=== PATIENT | female | born 2000 | race Caucasian/White ===

== ENCOUNTER 2020-04-13 14:42 | Outpatient (CLI) | payer BC, OTHER ==
[2020-04-13] MEDS ORDERED: RINGERS SOLUTION,LACTATED 1,000 ML IV PRN (14:55)
[2020-04-13 15:21] LABS: BACTERIA (WET MOUNT) 3+ BACTERIA SEEN; EPITHELIALS (WET MOUNT) 3+ EPITHELIALS SEEN; T.VAGINALIS (WET MOUNT) NO TRICHOMONAS SEEN; WBCS (WET MOUNT) 2+ WBCS SEEN; YEAST (WET MOUNT) NO YEAST SEEN
[2020-04-13 15:28] LABS: APPEARANCE,URINE CLEAR; BILIRUBIN,URINE NEGATIVE (NEGATIVE); COLOR,URINE STRAW; GLUCOSE, URINE 50 mg/dL (NEGATIVE); KETONES,URINE NEGATIVE (NEGATIVE); LEUKOCYTE ESTERASE,URINE NEGATIVE (NEGATIVE); NITRITE,URINE NEGATIVE (NEGATIVE); PROTEIN,URINE NEGATIVE (NEGATIVE); URINE SPECIFIC GRAVITY 1.003; UROBILINOGEN,URINE NEGATIVE mg/dL (<2.0)
[2020-04-13 15:44] LABS: ABSOLUTE LYMPHOCYTES (AUTO) 1.8 10^3/uL (0.5-4.7); ABSOLUTE MONOCYTES (AUTO) 0.6 10^3/uL (0.1-1.4); ABSOLUTE NEUT (AUTO) 7.5 10^3/uL (1.7-8.2); BASOPHILS % (AUTO) 0.2 % (0-2); EOSINOPHILS % (AUTO) 0.3 % (0-6); HEMATOCRIT 29.7 % (36.0-47.0); HEMOGLOBIN 10.4 g/dL (12.0-15.5); LYMPHOCYTES % (AUTO) 17.9 % (13-45); MEAN CORPUSCULAR HEMOGLOBIN 30.7 pg (27.0-33.4); MEAN CORPUSCULAR HGB CONC 35.2 g/dL (32.0-36.0); MEAN CORPUSCULAR VOLUME 87 fl (80-97); MONOCYTES % (AUTO) 6.3 % (3-13); PLATELET COUNT 246 10^3/uL (150-450); RED BLOOD COUNT 3.41 10^6/uL (3.72-5.28); RED CELL DISTRIBUTION WIDTH 13.5 % (11.5-14.0); SEGMENTED NEUTROPHILS % (AUTO) 75.3 % (42-78); TOTAL CELLS COUNTED % (AUTO) 100 %
[2020-04-13 15:44] LABS: URINE AMPHETAMINES SCREEN NEGATIVE; URINE BARBITURATES SCREEN NEGATIVE; URINE BENZODIAZEPINES SCREEN NEGATIVE; URINE COCAINE SCREEN NEGATIVE; URINE MARIJUANA (THC) SCREEN NEGATIVE; URINE METHADONE SCREEN NEGATIVE; URINE PHENCYCLIDINE SCREEN NEGATIVE
[2020-04-13] MEDS ORDERED: INDOMETHACIN 50 MG SUPP.RECT PR ONE (16:00)
[2020-04-13] MEDS ORDERED: AMPICILLIN SODIUM 2 GM in NORMAL SALINE 100 ML IV ONE (16:15)
[2020-04-13] MEDS ORDERED: AZITHROMYCIN INJ 500 MG VIAL IV ONE ×2 (16:16→18:18)
--- NOTE | 2020-04-13 16:27 | PDOC TRANSFER SUMMARY ---
General Admission Date/PCP: JESSENIA CHRISTIANSON MD Admission Date: 04/13/20 Transfer Date: 04/13/20 Accepting Facility: [facility] Accepting Physician: Dr. Skaggs Resuscitation Status: Full Code - Transfer Medications Home Medications: Vits96/Iron Fum/Folic [ Tablet] 1 tab PO DAILY 04/13/20 Progesterone, Micronized [Prometrium] 1 cap PO DAILY 04/13/20 Transfer Medications: Current Medications Lactated Ringer's (Lactated Ringers 1000 Ml Iv Soln) 1,000 mls @ 125 mls/hr IV CONTINUOUS PRN PRN Reason: THIS MED IS NOT "PRN" Stop: 05/13/20 14:54 - Allergies Allergies/Adverse Reactions: No Known Allergies Allergy (Verified 04/13/20 15:03) Hospital Course Hospital Course: 20yo at 20+6ega presents from the office for cervical length of 6mm. She was seen in the office for scheduled cervical length today due to history of PPROM at 21 wks with prior . She has been on prometrium due to history of 21wks PPROM and loss GC/CT pending. Fern is negative wet prep neg for trich and neg for yeast On exam cervix appears to be dilated to 3cm with membranes appear to be flush with cervical os 100mg Indomethicin given rectally. 2 grams Ampicillin IV Azithromycin 500mg IV Physical Exam Vital Signs: Intake & Output 04/12/20 04/13/20 04/14/20 06:59 06:59 06:59 Weight 56.699 kg General appearance: PRESENT: no acute distress, well-developed, well-nourished Head exam: PRESENT: atraumatic, normocephalic Respiratory exam: PRESENT: clear to auscultation mikki. ABSENT: rales, rhonchi, wheezes Pulses: PRESENT: normal dorsalis pedis pul GI/Abdominal exam: PRESENT: normal bowel sounds, soft. ABSENT: distended, guarding, mass, organolmegaly, rebound, tenderness Rectal exam: PRESENT: deferred Extremities exam: PRESENT: full ROM. ABSENT: calf tenderness, clubbing, pedal edema Neurological exam: PRESENT: alert, awake, oriented to person, oriented to place, oriented to time, oriented to situation, CN II-XII grossly intact. ABSENT: motor sensory deficit Psychiatric exam: PRESENT: appropriate affect, normal mood. ABSENT: homicidal ideation, suicidal ideation Skin exam: PRESENT: dry, intact, warm. ABSENT: cyanosis, rash Results Laboratory Results: 04/13/20 15:31 04/13/20 04/13/20 15:00 15:31 WBC 10.0 RBC 3.41 L Hgb 10.4 L Hct 29.7 L MCV 87 MCH 30.7 MCHC 35.2 RDW 13.5 Plt Count 246 Seg Neutrophils % 75.3 Urine Color STRAW Urine Appearance CLEAR Urine pH 7.0 Ur Specific Sixes 1.003 Urine Protein NEGATIVE Urine Glucose (UA) 50 H Urine Ketones NEGATIVE Urine Blood NEGATIVE Urine Nitrite NEGATIVE Ur Leukocyte Esterase NEGATIVE Urine WBC (Auto) 0 Urine RBC (Auto) 0 Status: Imported from PACS Plan Discharge Plan: transfer to [facility] for evaluation of obtaining cerclage
[2020-04-13] MEDS ORDERED: AMPICILLIN SOD INJ 2 GM VIAL ONE (17:24)
[2020-04-13 18:37] LABS: CHLAM PCR NOT DETECTED (NOT DETECT)
== END 2020-04-13 18:34 | disposition short-term general hospital (02) ==
LOC: LC 14:42
PROVIDERS: ATTEND Student in an Organized Health Care Education/Training Program
DX: O34.32 Maternal care for cervical incompetence, second trimester (principal); Z3A.20 20 weeks gestation of pregnancy
CPT/HCPCS: 59899; 36415; 87210; 85025; 81001; 80307; 87491; 87591; Q0114; J0290; J0456; 94760

== ENCOUNTER 2020-04-18 05:49 | Outpatient (CLI) | payer BC, OTHER ==
[2020-04-18 07:29] LABS: T.VAGINALIS (WET MOUNT) NO TRICHOMONAS SEEN; WBCS (WET MOUNT) FEW WBCS SEEN; YEAST (WET MOUNT) NO YEAST SEEN
[2020-04-18 08:46] LABS: APPEARANCE,URINE SLIGHTLY-CLOUDY; BILIRUBIN,URINE NEGATIVE (NEGATIVE); COLOR,URINE YELLOW; GLUCOSE, URINE NEGATIVE (NEGATIVE); KETONES,URINE NEGATIVE (NEGATIVE); LEUKOCYTE ESTERASE,URINE MODERATE (NEGATIVE); NITRITE,URINE NEGATIVE (NEGATIVE); PROTEIN,URINE NEGATIVE (NEGATIVE); URINE SPECIFIC GRAVITY 1.008; UROBILINOGEN,URINE NEGATIVE mg/dL (<2.0)
[2020-04-18 08:53] LABS: URINE AMPHETAMINES SCREEN NEGATIVE; URINE BARBITURATES SCREEN NEGATIVE; URINE BENZODIAZEPINES SCREEN NEGATIVE; URINE COCAINE SCREEN NEGATIVE; URINE MARIJUANA (THC) SCREEN NEGATIVE; URINE METHADONE SCREEN NEGATIVE; URINE PHENCYCLIDINE SCREEN NEGATIVE
[2020-04-18] MEDS ORDERED: AMPICILLIN SOD/SULBACTAM 3 GM VIAL IV ONE (10:12)
[2020-04-18] MEDS ORDERED: RINGERS SOLUTION,LACTATED 1,000 ML IV PRN (10:12)
[2020-04-18] MEDS ORDERED: AMPICILLIN SOD/SULBACTAM 3 GM VIAL ONE (11:09)
--- NOTE | 2020-04-18 12:37 | RADIOLOGY REPORT (SQ) ---
EXAM DESCRIPTION: U/S OB LIMITED IMAGES COMPLETED DATE/TIME: 04/18/2020 10:11 am REASON FOR STUDY: 21w5d in need of KIRIT, possible PROM. History of incompetent cervix status post ce rclage initial last Thursday. COMPARISON: None TECHNIQUE: Static and Dynamic grayscale imaging performed of gravid uterus using transabdominal appr oach. Additional selected color Doppler and spectral images recorded. All stored on PACS. LIMITATIONS: None. FINDINGS: FETUSES SEEN:1 EGA: 21 weeks 5 days Calculated using BPD,FL,HC,AC documented on images. No discrepancy with clinica l dates. MARLO: 08/24/2020 EFW: 445+/- 66 grams PERCENTILE: NA KIRIT: 14.3 cm PLACENTA: Posterior GRADE: I PRESENTATION: Breech ANATOMY: Anatomic survey was not performed. MATERNAL ADNEXA: Maternal ovaries not visualized. CERVICAL LENGTH: 1.9 cm Closed. OTHER: No other significant finding. IMPRESSION: LIVING INTRAUTERINE . ESTIMATED GESTATIONAL AGE 21 weeks 5 days Cervix is closed. Trimester of : Second trimester - 13 weeks 1 day to 27 weeks 6 days. TECHNICAL DOCUMENTATION: JOB ID: [id number] 2010 [employer]- All Rights Reserved Reading location - IP/workstation name: [email or web address]
[2020-04-18] MEDS ORDERED: AMPICILLIN SOD/SULBACTAM 1.5 GM VIAL IV SCH (16:00)
== END 2020-04-18 12:45 | disposition short-term general hospital (02) ==
LOC: LC 05:49
PROVIDERS: ATTEND Obstetrics & Gynecology
DX: O26.892 Other specified pregnancy related conditions, second trimester (principal); Z3A.21 21 weeks gestation of pregnancy
CPT/HCPCS: 87210; 81001; 80307; 84112; 76815; Q0114; J0295

== ENCOUNTER 2020-04-26 08:56 | Outpatient (CLI) | payer BC, OTHER ==
[2020-04-26 10:38] LABS: ABSOLUTE LYMPHOCYTES (AUTO) 1.5 10^3/uL (0.5-4.7); ABSOLUTE MONOCYTES (AUTO) 0.5 10^3/uL (0.1-1.4); ABSOLUTE NEUT (AUTO) 10.2 10^3/uL (1.7-8.2); BASOPHILS % (AUTO) 0.1 % (0-2); EOSINOPHILS % (AUTO) 0.2 % (0-6); HEMATOCRIT 31.6 % (36.0-47.0); HEMOGLOBIN 10.6 g/dL (12.0-15.5); LYMPHOCYTES % (AUTO) 12.5 % (13-45); MEAN CORPUSCULAR HEMOGLOBIN 29.3 pg (27.0-33.4); MEAN CORPUSCULAR HGB CONC 33.5 g/dL (32.0-36.0); MEAN CORPUSCULAR VOLUME 88 fl (80-97); MONOCYTES % (AUTO) 4.4 % (3-13); PLATELET COUNT 286 10^3/uL (150-450); RED CELL DISTRIBUTION WIDTH 13.9 % (11.5-14.0); SEGMENTED NEUTROPHILS % (AUTO) 82.8 % (42-78); TOTAL CELLS COUNTED % (AUTO) 100 %; WHITE BLOOD COUNT 12.3 10^3/uL (4.0-10.5)
[2020-04-26 10:54] LABS: APPEARANCE,URINE SLIGHTLY-CLOUDY; BILIRUBIN,URINE NEGATIVE (NEGATIVE); COLOR,URINE YELLOW; GLUCOSE, URINE NEGATIVE (NEGATIVE); KETONES,URINE NEGATIVE (NEGATIVE); LEUKOCYTE ESTERASE,URINE MODERATE (NEGATIVE); NITRITE,URINE NEGATIVE (NEGATIVE); PROTEIN,URINE NEGATIVE (NEGATIVE); UROBILINOGEN,URINE NEGATIVE mg/dL (<2.0)
[2020-04-26 11:19] LABS: URINE AMPHETAMINES SCREEN NEGATIVE; URINE BARBITURATES SCREEN NEGATIVE; URINE BENZODIAZEPINES SCREEN NEGATIVE; URINE COCAINE SCREEN NEGATIVE; URINE MARIJUANA (THC) SCREEN NEGATIVE; URINE METHADONE SCREEN NEGATIVE; URINE PHENCYCLIDINE SCREEN NEGATIVE
== END 2020-04-26 11:38 | disposition home or self-care (01) ==
LOC: LC 08:56
PROVIDERS: ATTEND Obstetrics & Gynecology
DX: O47.02 False labor before 37 completed weeks of gestation, second trimester (principal); Z3A.22 22 weeks gestation of pregnancy; Z02.83 Encounter for blood-alcohol and blood-drug test
CPT/HCPCS: 36415; 80307; 81001; 85025; 87086

== ENCOUNTER 2020-04-26 21:02 | Outpatient (CLI) | payer BC, OTHER ==
[2020-04-26 22:04] LABS: APPEARANCE,URINE SLIGHTLY-CLOUDY; BILIRUBIN,URINE NEGATIVE (NEGATIVE); COLOR,URINE YELLOW; GLUCOSE, URINE NEGATIVE (NEGATIVE); KETONES,URINE NEGATIVE (NEGATIVE); LEUKOCYTE ESTERASE,URINE LARGE (NEGATIVE); NITRITE,URINE NEGATIVE (NEGATIVE); PROTEIN,URINE NEGATIVE (NEGATIVE); URINE SPECIFIC GRAVITY 1.006; UROBILINOGEN,URINE NEGATIVE mg/dL (<2.0)
[2020-04-26 22:24] LABS: URINE AMPHETAMINES SCREEN NEGATIVE; URINE BARBITURATES SCREEN NEGATIVE; URINE BENZODIAZEPINES SCREEN NEGATIVE; URINE COCAINE SCREEN NEGATIVE; URINE MARIJUANA (THC) SCREEN NEGATIVE; URINE PHENCYCLIDINE SCREEN NEGATIVE
[2020-04-26 22:32] LABS: URINE METHADONE SCREEN NEGATIVE
== END 2020-04-26 23:29 | disposition home or self-care (01) ==
LOC: LC 21:02
PROVIDERS: ATTEND Obstetrics & Gynecology
DX: O34.32 Maternal care for cervical incompetence, second trimester (principal); O47.02 False labor before 37 completed weeks of gestation, second trimester; O46.92 Antepartum hemorrhage, unspecified, second trimester; Z3A.22 22 weeks gestation of pregnancy
CPT/HCPCS: 80307; 81001

== ENCOUNTER 2020-04-27 02:43 | Outpatient (CLI) | payer BC, OTHER ==
[2020-04-27 05:10] LABS: ABSOLUTE LYMPHOCYTES (AUTO) 2.1 10^3/uL (0.5-4.7); ABSOLUTE MONOCYTES (AUTO) 0.7 10^3/uL (0.1-1.4); ABSOLUTE NEUT (AUTO) 11.1 10^3/uL (1.7-8.2); BASOPHILS % (AUTO) 0.2 % (0-2); EOSINOPHILS % (AUTO) 0.3 % (0-6); HEMATOCRIT 29.9 % (36.0-47.0); HEMOGLOBIN 10.3 g/dL (12.0-15.5); LYMPHOCYTES % (AUTO) 14.8 % (13-45); MEAN CORPUSCULAR HEMOGLOBIN 30.2 pg (27.0-33.4); MEAN CORPUSCULAR HGB CONC 34.5 g/dL (32.0-36.0); MEAN CORPUSCULAR VOLUME 88 fl (80-97); MONOCYTES % (AUTO) 5.3 % (3-13); PLATELET COUNT 290 10^3/uL (150-450); RED BLOOD COUNT 3.41 10^6/uL (3.72-5.28); RED CELL DISTRIBUTION WIDTH 13.8 % (11.5-14.0); SEGMENTED NEUTROPHILS % (AUTO) 79.4 % (42-78); TOTAL CELLS COUNTED % (AUTO) 100 %
[2020-04-27 05:27] LABS: FIBRINOGEN 446 mg/dL (209-497); INTERNATIONAL RATION (INR) 0.96; PARTIAL THROMBOPLASTIN TIME 27.1 SEC (23.5-35.8)
--- NOTE | 2020-04-27 06:27 | RADIOLOGY REPORT (SQ) ---
Ultrasound OB limited on 04/27/2020 at 5:07 AM CLINICAL INDICATION: History of incompetent cervix, evaluate cervical length COMPARISON: 04/18/2020 FINDINGS: Limited sonographic imaging is performed throughout the pelvis by transabdominal approach, both transverse and sagittal images are obtained. Positive cardiac activity is noted with a heart rate of 143 bpm. Placenta is posterior in location with no evidence of placenta previa or abruption. Normal amount of amniotic fluid is noted with amniotic fluid index of 13.9 cm. Fetus is noted in breech presentation with feet presenting. The internal cervical os is open. Cervical cerclage is noted in place. The cervical length measures approximately 1.1 cm. measurements for dates were not performed. IMPRESSION: Widely open internal cervical os with very shortened cervix measuring 1.1 cm with fetus in breech presentation with feet presenting.
[2020-04-27] MEDS ORDERED: CEPHALEXIN 500 MG CAPSULE PO SCH (07:00)
[2020-04-27] MEDS ORDERED: CEPHALEXIN 500 MG CAPSULE ONE (07:08)
[2020-04-27] MEDS ORDERED: IBUPROFEN 800 MG TABLET PO ONE (09:19)
[2020-04-27] MEDS ORDERED: BETAMET ACET/BETAMET NA INJ 6 MG/1 ML ONE (09:28)
[2020-04-27] MEDS ORDERED: IBUPROFEN 800 MG TABLET ONE (09:28)
[2020-04-27] MEDS ORDERED: BETAMET ACET/BETAMET NA INJ 6 MG/1 ML IM ONE (09:28)
--- NOTE | 2020-04-27 09:28 | PDOC TRANSFER SUMMARY ---
General Admission Date/PCP: HARRISON FU MD Admission Date: 04/27/20 Transfer Date: 04/27/20 Accepting Facility: [facility] Accepting Physician: Jourdan Resuscitation Status: Full Code - Transfer Diagnosis (1) Vaginal bleeding during , antepartum Is this a current diagnosis for this admission?: Yes Diagnosis Summary: now with 3rd episode of vaginal bleeding and cerclage in place. No tension on cerclage but US noted cervix shorter than previous No ctx palpable and none on toco. D/w Dr. Lim - priscilla Stout, transfer. Appreciate Dr. Lim assistance. Dr Soliman accepts transfer and appreciate his and [facility] OB as well. keflex given by prior provider last evening due to suspected UTI. Wet prep and GC/CT pending - - they were negative initially on transfer 04/13 (2) Incompetent cervix Is this a current diagnosis for this admission?: Yes Diagnosis Summary: s/p cerclage (3) Cervical cerclage suture present in second trimester Is this a current diagnosis for this admission?: Yes Diagnosis Summary: cerclage placed on 04/15 due to incompetent cervix with membranes visible at os. Transfered to [facility] on 04/13 for same. - Transfer Medications Home Medications: Vits96/Iron Fum/Folic [ Tablet] 1 tab PO DAILY 04/13/20 Progesterone, Micronized [Prometrium] 1 cap PO DAILY 04/13/20 Transfer Medications: Current Medications Cephalexin HCl (Cephalexin 500 Mg Capsule) 500 mg PO Q12 YARITZA Stop: 05/04/20 06:59 Last Admin: 04/27/20 07:15 Dose: 500 mg Documented by: Ibuprofen (Ibuprofen 800 Mg Tablet) 800 mg PO NOW ONE Stop: 04/27/20 09:20 - Allergies Allergies/Adverse Reactions: No Known Allergies Allergy (Verified 04/13/20 15:03) Hospital Course Hospital Course: 20yo at 22+6ega presents with 3rd. She was seen in the office for scheduled cervical length on 04/13 and transferred to [facility] for incompetent cervix on same day. Cerclage placed on 04/15. She has a history of PPROM at 21 wks with prior . She has been on prometrium this due to history of 21wks PPROM and loss. GC/CT pending. Clara is pending for this visit (apparently transferred on 04/18 for positive and positive actimprom but then negative exam at [facility] and discharged. KIRIT 14 previously and stable today at 13.9cm). Patient is aware of risks of transfer and risks of extreme prematurity. Physical Exam General appearance: PRESENT: no acute distress, well-developed, well-nourished Head exam: PRESENT: atraumatic, normocephalic Respiratory exam: PRESENT: clear to auscultation mikki. ABSENT: rales, rhonchi, wheezes Cardiovascular exam: PRESENT: RRR. ABSENT: diastolic murmur, rubs, systolic murmur Pulses: PRESENT: normal dorsalis pedis pul GI/Abdominal exam: PRESENT: normal bowel sounds, soft. ABSENT: distended, guarding, mass, organolmegaly, rebound, tenderness Rectal exam: PRESENT: deferred Extremities exam: PRESENT: full ROM. ABSENT: calf tenderness, clubbing, pedal edema Neurological exam: PRESENT: alert, awake, oriented to person, oriented to place, oriented to time, oriented to situation, CN II-XII grossly intact. ABSENT: motor sensory deficit Results Laboratory Results: 04/27/20 05:02 04/27/20 05:02 WBC 14.0 H RBC 3.41 L Hgb 10.3 L Hct 29.9 L MCV 88 MCH 30.2 MCHC 34.5 RDW 13.8 Plt Count 290 Seg Neutrophils % 79.4 H Impressions: Obstetrics Ultrasound 04/27/20 00:00 IMPRESSION: Widely open internal cervical os with very shortened cervix measuring 1.1 cm with fetus in breech presentation with feet presenting. Status: Imported from PACS Plan Discharge Plan: Transfer to [facility]
[2020-04-27 10:21] LABS: RBCS (WET MOUNT) 4+ RBCS SEEN; T.VAGINALIS (WET MOUNT) NO TRICHOMONAS SEEN; WBCS (WET MOUNT) 1+ WBCS SEEN; YEAST (WET MOUNT) NO YEAST SEEN
[2020-04-27 11:41] LABS: CHLAM PCR NOT DETECTED (NOT DETECT)
== END 2020-04-27 10:43 | disposition short-term general hospital (02) ==
LOC: LC 02:43
PROVIDERS: ATTEND Obstetrics & Gynecology
DX: O46.92 Antepartum hemorrhage, unspecified, second trimester (principal); O34.32 Maternal care for cervical incompetence, second trimester; O23.42 Unspecified infection of urinary tract in pregnancy, second trimester; O32.8XX0 Maternal care for other malpresentation of fetus, not applicable or unspecified; Z3A.22 22 weeks gestation of pregnancy
CPT/HCPCS: 59899; 36415; 87086; 87210; 85025; 85384; 85610; 85730; 87491; 87591; 76815; Q0114; J0702; 94760; 96372